=== PATIENT | female | born 1995 | race Caucasian/White ===

== ENCOUNTER → 2017-08-16 | Outpatient (CLI) | payer BC ==
--- NOTE | 2017-08-16 12:37 | Diagnostic Imaging Report ---
EXAMINATION: Three views of the left foot. INDICATION: Five-week followup of stress fracture of the fifth metatarsal. FINDINGS: There is a transverse lucency through the proximal aspect of the left fifth metatarsal outer cortex with osseous bridging suggested. The previous study when the fracture was diagnosed is not available for comparison. The findings are suggestive of a healing nondisplaced fracture. There is no displaced fracture identified. No subluxation or dislocation seen. No radiopaque foreign body is noted. IMPRESSION: Suggestion of a healing nondisplaced fracture through the proximal fifth metatarsal shaft. Dictated by: Dictated on workstation # [id number]
== END ==
LOC: RAD 09:11
PROVIDERS: ATTEND Nurse Practitioner
DX: S92.355D Nondisplaced fracture of fifth metatarsal bone, left foot, subsequent encounter for fracture with routine healing (principal)
CPT/HCPCS: 73630